=== PATIENT | female | born 1950 | race Caucasian/White ===

== ENCOUNTER 2020-04-06 07:25 | Outpatient (CLI) | payer MEDICARE, SELFPAY ==
[2020-04-06 07:42] LABS: Basophils Absolute Auto 0.07 K/mm3 (0.00-0.10); Basophils Percent Auto 1.3 % (0.0-1.0); Eosinophils Absolute Auto 0.26 K/mm3 (0.02-0.50); Eosinophils Percent Auto 4.9 % (1.0-6.0); Hematocrit 39.4 % (35.0-42.0); Immature Granulocyte Absolute 0.04 K/mm3 (0.00-0.00); Immature Granulocyte Percent A 0.8 % (0.0-0.0); Lymphocytes Absolute Auto 1.37 K/mm3 (1.10-4.50); Lymphocytes Percent Auto 25.8 % (18.0-42.0); Mean Corpuscular Volume 90.8 fL (78.0-102.0); Mean Platelet Volume 8.8 fl (9.2-11.8); Monocytes Absolute Auto 0.45 K/mm3 (0.10-0.90); Monocytes Percent Auto 8.5 % (2.0-11.0); Neutrophils Absolute Auto 3.1 K/mm3 (1.7-7.2); Neutrophils Percent Auto 58.7 % (50.0-70.0); Platelet Count Result 195 K/mm3 (150-420); Red Blood Count 4.34 M/mm3 (4.20-5.40); Red Cell Distribution Width 13.4 % (11.6-14.4); White Blood Count 5.3 K/mm3 (4.8-10.8)
[2020-04-06 07:43] LABS: Add Urine Microscopic? YES; Appearance Urine Clear (Clear); Bilirubin Urine Negative (Negative); Blood Urine Negative (Negative); Color Urine Yellow (Yellow); Glucose Urine UA Negative (Negative); Ketones Urine Negative (Negative); Leukocyte Esterase Ur 1+ LEU/UL (Negative); Nitrate Urine Negative (Negative); Protein Urine Negative (Negative); Urobilinogen Urine 0.2 mg/dL (0.2-1.0); pH Urine 5.5 (5.0-8.0)
[2020-04-06 07:51] LABS: Bacteria Urine Trace /hpf; RBC Urine 0-2 /hpf (0-2); Squamous Epithelial Cell Urine Few /hpf (Few)
[2020-04-06 08:19] LABS: Alanine Aminotransferase 31 U/L (14-59); Alkaline Phosphatase 68 U/L (46-116); Anion Gap 11.4 mmol/L (7-16); Aspartate Amino Transferase 24 U/L (15-37); Bilirubin,Total 0.3 mg/dL (0.00-1.00); Blood Urea Nitrogen 21 mg/dL (7-18); Calcium 9.4 mg/dL (8.5-10.1); Carbon Dioxide 30 mmol/L (21-32); Chloride 106 mmol/L (98-108); Cholesterol 245 mg/dL (0-200); Estimated Glomerular Filt Rate 57; Glucose 103 mg/dL (70-99); HDL Direct 63 mg/dL (40-60); LDL Cholesterol Calculated 117 mg/dL (<130); Osmolality Calculated 299 mOsm/kg (285-295); Potassium 4.4 mmol/L (3.5-5.1); Sodium 143 mmol/L (136-145); Thyroid Stimulating Hormone 4.29 uIU/mL (0.36-3.74); Triglycerides 323 mg/dL (0-150)
== END 2020-04-06 07:26 | disposition home or self-care (01) ==
PROVIDERS: PCP Internal Medicine; Visit Provider Internal Medicine
DX: E78.5 Hyperlipidemia, unspecified (principal); M54.5 Low back pain; K52.9 Noninfective gastroenteritis and colitis, unspecified; R82.90 Unspecified abnormal findings in urine
CPT/HCPCS: 36415; 80053; 80061; 81001; 84443; 85025; 87086; 87088

== ENCOUNTER 2020-08-11 08:46 | Outpatient (CLI) | payer MEDICARE, SELFPAY ==
--- NOTE | ~2020-08-11 | MM_ITS ---
EXAMINATION: MM screening lilia BI w tom HISTORY: Screening TECHNIQUE: Craniocaudal and mediolateral oblique 3-D tomosynthesis images were obtained and synthetic 2-D images were generated. CAD analysis was submitted and interpreted. COMPARISON: Comparison to multiple prior studies sequentially, with oldest reviewed study dated 06/06. BREAST PARENCHYMAL COMPOSITION: There are scattered areas of fibroglandular density. FINDINGS: There is no evidence of suspicious mass, calcification, or architectural distortion to sugg est malignancy in either breast. There has been no suspicious interval change. IMPRESSION: 1. No mammographic evidence of malignancy. 2. Recommend routine screening mammography in one year. BI-RADS Category 1: Negative Reviewed, dictated and finalized at location A.
--- NOTE | ~2020-08-11 | DEXA_ITS ---
Bone Density Report Name: Whitley Ramos Age: 69 Sex: Female Ethnicity: White Date of : 1950 Indication: osteopenia; inflammatory bowel disease; hysterectomy; Referring Provider: AJIT MCKEON Study: Bone densitometry was performed. Exam Date: August 11, 2020 Accession number: [id number] Bone Density: Region BMD T-score Z-score Classification AP Spine (L1, L2, L3) 1.108 0.8 2.7 Normal Femoral Neck (Left) 0.620 -2.1 -0.4 Osteopenia Total Hip (Left) 0.789 -1.3 0.1 Osteopenia Total Hip Bilateral Avg 0.837 -0.9 0.5 Normal Femoral Neck (Right) 0.672 -1.6 0.1 Osteopenia Total Hip (Right) 0.885 -0.5 0.9 Normal World Health Organization criteria for BMD impression classify patients as: Normal (T-score at or above -1.0), Osteopenia (T-score between -1.0 and -2.5), or Osteoporosis (T-score at or below -2.5). 10-year Fracture Risk(1): Major Osteoporotic Fracture 11% Hip Fracture 1.8% Reported Risk Factors: [place] (), Neck BMD=0.620, BMI=31.2 (1) FRAX(R) Version 3.08. Fracture probability calculated for an untreated patient. Fracture probability may be lower if the patient has received treatment. Previous Exams: Region Exam Age BMD T-score BMD Change BMD Change Date g/cm2 vs Baseline vs Previous AP Spine(L1, L2, L3) 08/11/2020 69 1.108 0.8 0.048(4.5%)# 0.048(4.5%)# 04/04/2009 58 1.060 0.4 Total Hip(Left) 08/11/2020 69 0.789 -1.3 0.021(2.8%)# 0.039(5.2%)* 07/02/2018 67 0.750 -1.6 -0.018(-2.4%)# -0.018(-2.4%)# 04/04/2009 58 0.768 -1.4 Total Hip(Right) 08/11/2020 69 0.885 -0.5 0.017(2.0%)# 0.062(7.5%)* 07/02/2018 67 0.823 -1.0 -0.045(-5.1%)# -0.045(-5.1%)# 04/04/2009 58 0.868 -0.6 *Denotes significance at 95% confidence level, LSC for AP Spine = 0.022 g/cm2, LSC for Total Hip = 0.027 g/cm2 Clinical Information Provided by Patient: Has the following medical conditions: Inflammatory bowel diseases, Hysterectomy Patient maximum height was 66 Menopause Age: 42 Drinks caffeinated beverages Onset of menses at age 15 Number of children 1 Impression: The patient has low bone mass, based on the Left Femoral Neck T-score. The patient has an estimated ten-year risk of hip fracture of 1.8% and an estimated ten-year risk of major fracture of 11%, based on the WHO FRAX algorithm. No significant bone loss was observed. Discussion: BONE DENSITY IS LOW AT ONE OR MORE SKELETAL SITES.
== END 2020-08-11 08:47 | disposition home or self-care (01) ==
LOC: ANHIMG 08:49
PROVIDERS: PCP Internal Medicine; Visit Provider Internal Medicine
DX: Z12.31 Encounter for screening mammogram for malignant neoplasm of breast (principal); Z78.0 Asymptomatic menopausal state; M85.852 Other specified disorders of bone density and structure, left thigh; M85.851 Other specified disorders of bone density and structure, right thigh
CPT/HCPCS: 77063; 77067; 77080

== ENCOUNTER 2020-12-09 08:11 | Outpatient (CLI) | payer MEDICARE, SELFPAY ==
[2020-12-09 08:36] LABS: Hemoglobin A1C 5.5 % (<5.7)
[2020-12-09 09:27] LABS: Alanine Aminotransferase 23 U/L (14-59); Albumin Level 4.2 g/dL (3.4-5.0); Alkaline Phosphatase 75 U/L (46-116); Anion Gap 10 mmol/L (8-16); Aspartate Amino Transferase 14 U/L (15-37); Bilirubin,Total 0.4 mg/dL (0.00-1.00); Blood Urea Nitrogen 15 mg/dL (7-18); Calcium 9.1 mg/dL (8.5-10.1); Carbon Dioxide 27 mmol/L (21-32); Chloride 106 mmol/L (98-108); Cholesterol 215 mg/dL (0-200); Estimated Glomerular Filt Rate > 60; Free T3 2.05 pg/mL (2.18-3.98); Free T4 Free Thyroxine 0.77 ng/dL (0.76-1.46); Glucose 96 mg/dL (70-99); HDL Direct 63 mg/dL (40-60); LDL Cholesterol Calculated 111 mg/dL (<130); Osmolality Calculated 296 mOsm/kg (285-295); Potassium 4.3 mmol/L (3.5-5.1); Sodium 143 mmol/L (136-145); Thyroid Stimulating Hormone 1.68 uIU/mL (0.36-3.74); Total Protein 7.8 g/dL (6.4-8.2); Triglycerides 207 mg/dL (0-150)
[2020-12-13 05:11] LABS: Thyroglobulin 9.2 ng/mL (2.8-40.9); Thyroglobulin Antibodies <1 IU/mL (<=1)
== END 2020-12-09 08:12 | disposition home or self-care (01) ==
LOC: CHSLAB 08:14
PROVIDERS: PCP Internal Medicine; Visit Provider Internal Medicine
DX: E78.5 Hyperlipidemia, unspecified (principal); R73.01 Impaired fasting glucose; E03.9 Hypothyroidism, unspecified
CPT/HCPCS: 36415; 80053; 80061; 83036; 84432; 84439; 84443; 84481; 86800

== ENCOUNTER 2021-08-10 08:10 | Outpatient (CLI) | payer MEDICARE, SELFPAY ==
[2021-08-10 08:30] LABS: Add Urine Microscopic? NO; Appearance Urine Clear (Clear); Basophils Absolute Auto 0.06 K/mm3 (0.00-0.10); Basophils Percent Auto 1.2 % (0.0-1.0); Bilirubin Urine Negative (Negative); Blood Urine Negative (Negative); Color Urine Light Yellow (Yellow); Eosinophils Percent Auto 4.1 % (1.0-6.0); Glucose Urine UA Negative (Negative); Hematocrit 41.6 % (35.0-42.0); Hemoglobin 13.7 g/dL (11.7-13.8); Immature Granulocyte Absolute 0.02 K/mm3 (0.00-0.00); Immature Granulocyte Percent A 0.4 % (0.0-0.0); Ketones Urine Negative (Negative); Leukocyte Esterase Ur Negative (Negative); Lymphocytes Absolute Auto 1.17 K/mm3 (1.10-4.50); Lymphocytes Percent Auto 24.1 % (18.0-42.0); Mean Corpuscular HGB Conc 32.9 g/dL (32.0-36.0); Mean Corpuscular Hemoglobin 29.1 pg (27.0-31.0); Mean Corpuscular Volume 88.3 fL (78.0-102.0); Mean Platelet Volume 9.2 fl (9.2-11.8); Monocytes Absolute Auto 0.41 K/mm3 (0.10-0.90); Monocytes Percent Auto 8.4 % (2.0-11.0); Neutrophils Percent Auto 61.8 % (50.0-70.0); Nitrate Urine Negative (Negative); Platelet Count Result 232 K/mm3 (150-420); Protein Urine Negative (Negative); Red Blood Count 4.71 M/mm3 (4.20-5.40); Specific Grav Ur 1.025 (1.010-1.020); Urobilinogen Urine 0.2 mg/dL (0.2-1.0); White Blood Count 4.9 K/mm3 (4.8-10.8); pH Urine 5.5 (5.0-8.0)
[2021-08-10 09:07] LABS: Alanine Aminotransferase 36 U/L (14-59); Albumin Level 4.2 g/dL (3.4-5.0); Alkaline Phosphatase 74 U/L (46-116); Anion Gap 10 mmol/L (8-16); Aspartate Amino Transferase 24 U/L (15-37); Bilirubin,Total 0.4 mg/dL (0.00-1.00); Blood Urea Nitrogen 16 mg/dL (7-18); Calcium 9.5 mg/dL (8.5-10.1); Carbon Dioxide 27 mmol/L (21-32); Chloride 105 mmol/L (98-108); Cholesterol 225 mg/dL (0-200); Estimated Glomerular Filt Rate > 60; Glucose 103 mg/dL (70-99); HDL Direct 59 mg/dL (40-60); LDL Cholesterol Calculated 111 mg/dL (<130); Osmolality Calculated 295 mOsm/kg (285-295); Potassium 4.3 mmol/L (3.5-5.1); Sodium 142 mmol/L (136-145); Total Protein 7.1 g/dL (6.4-8.2); Triglycerides 277 mg/dL (0-150)
== END 2021-08-10 08:11 | disposition home or self-care (01) ==
PROVIDERS: PCP Internal Medicine; Visit Provider Internal Medicine
DX: E78.5 Hyperlipidemia, unspecified (principal); Z00.00 Encounter for general adult medical examination without abnormal findings
CPT/HCPCS: 36415; 80053; 80061; 81003; 85025

== ENCOUNTER 2021-09-03 08:08 | Outpatient (CLI) | payer MEDICARE, SELFPAY ==
--- NOTE | ~2021-09-03 | MM_ITS ---
EXAMINATION: MM screening lilia BI w tom HISTORY: Screening mammogram TECHNIQUE: Craniocaudal and mediolateral oblique 3-D tomosynthesis images were obtained and synthetic 2-D images were generated. CAD analysis was submitted and interpreted. COMPARISON: 08/11/2020, 07/15/2019, 07/02/2018 bilateral screening mammogram examinations BREAST PARENCHYMAL COMPOSITION: There are scattered areas of fibroglandular density. FINDINGS: There is no evidence of suspicious mass, calcification, or architectural distortion to sugg est malignancy in either breast. There has been no suspicious interval change. IMPRESSION: 1. No mammographic evidence of malignancy. 2. Recommend routine screening mammography in one year. BI-RADS Category 1: Negative Reviewed, dictated and finalized at location A. 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
== END 2021-09-03 08:09 | disposition home or self-care (01) ==
LOC: ANHIMG 08:10
PROVIDERS: PCP Internal Medicine; Visit Provider Internal Medicine
DX: Z12.31 Encounter for screening mammogram for malignant neoplasm of breast (principal)
CPT/HCPCS: 77063; 77067

== ENCOUNTER 2021-10-26 07:14 | Outpatient (CLI) | payer MEDICARE, SELFPAY ==
[2021-10-26 09:36] LABS: SARS-CoV-2 RNA PCR Negative (Negative)
== END 2021-10-26 07:15 | disposition home or self-care (01) ==
LOC: CHSLAB 07:16
PROVIDERS: PCP Internal Medicine; Visit Provider Internal Medicine
DX: Z20.822 Contact with and (suspected) exposure to COVID-19 (principal)
CPT/HCPCS: C9803; U0003; U0005

== ENCOUNTER 2022-01-17 01:18 | Day surgery (SDC) | payer MEDICARE, SELFPAY ==
[2022-01-09 09:18] VITALS: BMI 29.9
--- NOTE | 2022-01-17 06:30 | WPDANESEPPF ---
Anes - Initial Pre Proc Eval Procedure: Operation Date: 01/17/22 10:00 Proposed Procedures p Colonoscopy - Popeye Evans MD Date/Time: 01/17/22 06:30 Surgeon: Popeye Evans MD Pre Op Diagnosis: ulcerative colitis Patient Data Age: 71 Gender: F Height: 1.68 m Weight: 84 kg Allergies Allergy/AdvReac Type Severity Reaction Status Date / Time SPEARMINT OIL Allergy Severe THROAT Uncoded 01/17/22 08:45 CLOSES Home Medications Medication Instructions Recorded Confirmed Type balsalazide 750 mg capsule 2,250 mg PO BID #540 cap 12/18/21 01/17/22 Rx biotin 10,000 mcg capsule 10,000 mcg PO DAILY 12/18/21 01/17/22 History cholecalciferol (vitamin D3) 25 25 mcg PO DAILY 12/18/21 01/17/22 History mcg (1,000 unit) capsule diclofenac sodium 75 mg 75 mg PO BID tablet 12/18/21 01/17/22 History tablet,delayed release loratadine 10 mg chewable tablet 10 mg PO DAILY 12/18/21 01/17/22 History rosuvastatin 20 mg tablet 20 mg PO DAILY 12/18/21 01/17/22 History sertraline 100 mg tablet 100 mg PO DAILY 12/18/21 01/17/22 History Patient hx anesthesia problems: none Family hx anesthesia problems: none Results Review: All pre-operative results and documents have been reviewed as part of the pre-operative evaluation. [facility] Past Medical History Medical History Hyperlipidemia Ulcerative colitis Surgical History Surgical History History of hysterectomy Family History Family History Mother Family history of cardiovascular disease Social History Social History Smoking status: Former smoker Tobacco type: cigarettes Alcohol intake: current Drinks per week: 4 Substance use: current Substance use type: marijuana Other substance usage details: 2X weekly for OA Living arrangements: with family Spiritual care concerns: No Anes - Eval Final PreProcedure Day of Procedure 01/17/22 06:30 Patient weight: overweight Heart: regular rate and rhythm Lungs: clear to auscultation and normal air movement Airway: Mallampati scale class II Neurological: alert and oriented Last oral intake: >/= 8 hours ASA classification: III Emergent: no Anesthetic plan: proceed Anesthesia type and monitoring: general GIVS and standard monitoring Results Review: All pre-operative results and documents have been reviewed as part of the pre-operative evaluation. Informed Consent: The patient's anesthetic plan and its attendant risks and benefits were discussed with the patient/family/POA. Questions were solicited and answers provided to the satisfaction of the patient/family/POA.
[2022-01-17 08:46] VITALS: BP 135/88; PULSE 81; RESP 16; TEMP 36.3; O2SAT 99
[2022-01-17] MEDS: LACTATED RINGERS 1,000 ML 150 ML IV CONT (08:50)
--- NOTE | 2022-01-17 09:10 | PM.HPGS ---
History of Present Illness History of Present Illness Consent: Risks, benefits, and alternatives have been discussed and questions answered. Patient agrees to proceed with procedure. Chief complaint: ulcerative colitis Narrative: Whitley Ramos is a 71 year old female Who was found have ulcerative colitis of the distal colon few years ago. She has been taking balsalazide doing well with that. She has had no blood her stools. Her stools tend to be soft most the time. Review of Systems Review of Systems: All systems reviewed & are unremarkable except as noted in HPI and below PMFSH Past Medical History Medical History Hyperlipidemia Ulcerative colitis Surgical History Surgical History History of hysterectomy Family History Family History Mother Family history of cardiovascular disease Social History Social History Smoking status: Former smoker Tobacco type: cigarettes Alcohol intake: current Drinks per week: 4 Substance use: current Substance use type: marijuana Other substance usage details: 2X weekly for OA Living arrangements: with family Spiritual care concerns: No Meds Home Medications and Allergies Home Medications Medication Instructions Recorded Confirmed Type balsalazide 750 mg capsule 2,250 mg PO BID #540 cap 12/18/21 01/17/22 Rx biotin 10,000 mcg capsule 10,000 mcg PO DAILY 12/18/21 01/17/22 History cholecalciferol (vitamin D3) 25 25 mcg PO DAILY 12/18/21 01/17/22 History mcg (1,000 unit) capsule diclofenac sodium 75 mg 75 mg PO BID tablet 12/18/21 01/17/22 History tablet,delayed release loratadine 10 mg chewable tablet 10 mg PO DAILY 12/18/21 01/17/22 History rosuvastatin 20 mg tablet 20 mg PO DAILY 12/18/21 01/17/22 History sertraline 100 mg tablet 100 mg PO DAILY 12/18/21 01/17/22 History Allergies Allergy/AdvReac Type Severity Reaction Status Date / Time SPEARMINT OIL Allergy Severe THROAT Uncoded 01/17/22 08:45 CLOSES Vital Signs Vital Signs - 24 hr 01/17/22 08:46 Temperature 36.3 C L Pulse Rate 81 Respiratory Rate 16 Blood Pressure 135/88 Pulse Oximetry 99 Exam Const: General: alert Orientation/consciousness: patient oriented x3 Resp: Auscultation: clear to auscultation bilaterally Cardio: Rhythm: regular rhythm GI: GI Palp: Yes Soft to palpation and No Tenderness to palpation present (GI) Neuro: General: patient oriented x3 Assessment and Plan Assessment and plan (1) Ulcerative colitis: Code(s): K51.90 - Ulcerative colitis, unspecified, without complications Status: Acute Assessment and Plan: Colonoscopy with possible biopsy or polypectomy or cautery or injection of substances.
[2022-01-17 10:05] VITALS: BP 109/46; PULSE 74; RESP 23; O2SAT 96
[2022-01-17 10:15] VITALS: BP 134/83; PULSE 68; RESP 20; O2SAT 96
[2022-01-17 10:25] VITALS: BP 145/80; PULSE 72; RESP 20; O2SAT 98
== END 2022-01-17 10:30 | disposition home or self-care (01) ==
PROVIDERS: PCP Internal Medicine; Visit Provider Internal Medicine Gastroenterology
PROC: 0DJD8ZZ Inspection of Lower Intestinal Tract, Via Natural or Artificial Opening Endoscopic (ICD-10-PCS; CPT 45378; principal; 2022-01-17 10:00)
DX: K51.90 Ulcerative colitis, unspecified, without complications (principal); E78.5 Hyperlipidemia, unspecified; M19.90 Unspecified osteoarthritis, unspecified site; F12.90 Cannabis use, unspecified, uncomplicated; Z87.891 Personal history of nicotine dependence
CPT/HCPCS: 45380; 88305; J2704; J7120

== ENCOUNTER 2022-02-08 08:43 | Outpatient (CLI) | payer MEDICARE, SELFPAY ==
[2022-02-08 09:41] LABS: Alanine Aminotransferase 26 U/L (14-59); Albumin Level 4.1 g/dL (3.4-5.0); Alkaline Phosphatase 70 U/L (46-116); Anion Gap 8 mmol/L (8-16); Aspartate Amino Transferase 18 U/L (15-37); Bilirubin,Total 0.4 mg/dL (0.00-1.00); Blood Urea Nitrogen 20 mg/dL (7-18); Calcium 9.2 mg/dL (8.5-10.1); Carbon Dioxide 28 mmol/L (21-32); Chloride 106 mmol/L (98-108); Cholesterol 222 mg/dL (0-200); Estimated Glomerular Filt Rate > 60; Glucose 103 mg/dL (70-99); HDL Direct 59 mg/dL (40-60); LDL Cholesterol Calculated 109 mg/dL (<130); Osmolality Calculated 296 mOsm/kg (285-295); Potassium 4.6 mmol/L (3.5-5.1); Sodium 142 mmol/L (136-145); Total Protein 6.8 g/dL (6.4-8.2); Triglycerides 268 mg/dL (0-150)
== END 2022-02-08 08:44 | disposition home or self-care (01) ==
LOC: CHSLAB 08:45
PROVIDERS: PCP Internal Medicine; Visit Provider Internal Medicine
DX: E78.2 Mixed hyperlipidemia (principal)
CPT/HCPCS: 36415; 80053; 80061

== ENCOUNTER 2022-02-27 08:56 | Outpatient (CLI) | payer MEDICARE, SELFPAY ==
--- NOTE | ~2022-02-27 | XR_ITS ---
EXAMINATION: XR chest 2V DATE: 02/27/2022 09:48 INDICATION: Shortness of breath TECHNIQUE: PA and lateral views of the chest are obtained. COMPARISON: None available FINDINGS: There is mild atelectasis of the left lung base There is no pleural effusion or pneumothora x. The cardiomediastinal silhouette is normal. There is moderate thoracic spondylosis. IMPRESSION: 1. Mild left basilar atelectasis. Reviewed, dictated and finalized at location A.
--- NOTE | 2022-02-27 12:34 | WPDPFTINT ---
PFT Procedure Performed PFT Procedure Performed Plethysmography (Lung Vol) Diffusing Cap (DLCO) Flow Vol Loop Spirometry w/o Bronchodil PFT Interpretation This is a pulmonary function test with spirometry, plethysmography and diffusing capacity. The test was performed and results interpreted in accordance with the 2019 and 2005 ATS/ERS Task Force guidelines respectively using the Global Lung Function Initiative-2012 reference equations. Patient demonstrated good effort and cooperation. Reproducibility criteria were met. The quality of the spirometry maneuver was Grade A. Findings: Spirometry: The contour the inspiratory and expiratory flow tracing are normal. The FVC is 3.10 L, 100% predicted. The FEV1 is 2.30 L, 96% predicted. The FEV1: FVC ratio 74%. Plethysmography: The total lung capacity is 5.24 L, 97% predicted. The functional residual capacity is 2.61 L, 85% predicted. The residual volume is 2.14 L, 94% predicted. Diffusion capacity: The diffusion capacity unadjusted for hemoglobin and carboxyhemoglobin is 15.7, 73% predicted. The diffusion capacity adjusted for alveolar volume is 3.96, 94% predicted. Impression: The spirometry is normal without evidence of an obstructive abnormality. The lung volumes are normal. The diffusing capacity is normal. There are no prior studies for comparison
== END 2022-02-27 08:57 | disposition home or self-care (01) ==
LOC: ANHPFT 08:59
PROVIDERS: PCP Internal Medicine; Visit Provider Internal Medicine Cardiovascular Disease
DX: R06.00 Dyspnea, unspecified (principal); J98.11 Atelectasis
CPT/HCPCS: 71046; 94375; 94726; 94729

== ENCOUNTER 2022-06-27 08:41 | Outpatient (CLI) | payer MEDICARE, SELFPAY ==
[2022-06-27 09:31] LABS: SARS-CoV-2 RNA PCR Positive (Negative)
== END 2022-06-27 08:42 | disposition home or self-care (01) ==
LOC: CHSLAB 08:44
PROVIDERS: PCP Internal Medicine; Visit Provider Internal Medicine
DX: U07.1 COVID-19 (principal)
CPT/HCPCS: C9803; U0003; U0005

== ENCOUNTER 2022-09-11 14:43 | Outpatient (CLI) | payer MEDICARE, SELFPAY ==
--- NOTE | ~2022-09-11 | MM_ITS ---
EXAMINATION: MM screening lilia BI w tom HISTORY: Screening TECHNIQUE: Craniocaudal and mediolateral oblique 3-D tomosynthesis images were obtained and synthetic 2-D images were generated. CAD analysis was submitted and interpreted. COMPARISON: Comparison to multiple prior studies sequentially, with oldest reviewed study dated 06/24. BREAST PARENCHYMAL COMPOSITION: The breasts are almost entirely fatty. FINDINGS: There is no evidence of suspicious mass, calcification, or architectural distortion to sugg est malignancy in either breast. There has been no suspicious interval change. IMPRESSION: 1. No mammographic evidence of malignancy. 2. Recommend routine screening mammography in one year. BI-RADS Category 1: Negative Reviewed, dictated and finalized at location A. 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
== END 2022-09-11 14:44 | disposition home or self-care (01) ==
PROVIDERS: PCP Internal Medicine; Visit Provider Internal Medicine
DX: Z12.31 Encounter for screening mammogram for malignant neoplasm of breast (principal)
CPT/HCPCS: 77063; 77067

== ENCOUNTER 2022-10-04 08:40 | Outpatient (CLI) | payer MEDICARE, SELFPAY ==
[2022-10-04 08:55] LABS: Basophils Absolute Auto 0.06 K/mm3 (0.00-0.10); Basophils Percent Auto 1.2 % (0.0-1.0); Eosinophils Absolute Auto 0.21 K/mm3 (0.02-0.50); Eosinophils Percent Auto 4.2 % (1.0-6.0); Hematocrit 39.4 % (35.0-42.0); Immature Granulocyte Absolute 0.01 K/mm3 (0.00-0.00); Immature Granulocyte Percent A 0.2 % (0.0-0.0); Lymphocytes Absolute Auto 1.35 K/mm3 (1.10-4.50); Lymphocytes Percent Auto 27.3 % (18.0-42.0); Mean Corpuscular Hemoglobin 29.6 pg (27.0-31.0); Mean Corpuscular Volume 89.7 fL (78.0-102.0); Monocytes Absolute Auto 0.49 K/mm3 (0.10-0.90); Monocytes Percent Auto 9.9 % (2.0-11.0); Neutrophils Absolute Auto 2.8 K/mm3 (1.7-7.2); Neutrophils Percent Auto 57.2 % (50.0-70.0); Platelet Count Result 226 K/mm3 (150-420); Red Blood Count 4.39 M/mm3 (4.20-5.40); Red Cell Distribution Width 12.9 % (11.6-14.4)
[2022-10-04 09:00] LABS: Appearance Urine Clear (Clear); Bilirubin Urine Negative (Negative); Blood Urine Negative (Negative); Glucose Urine UA Negative (Negative); Ketones Urine Negative (Negative); Leukocyte Esterase Ur 2+ (Negative); Nitrate Urine Negative (Negative); Protein Urine Negative (Negative); Specific Grav Ur 1.015 (1.010-1.020); Urobilinogen Urine 0.2 mg/dL (0.2-1.0)
[2022-10-04 09:05] LABS: Add Urine Microscopic? YES; Bacteria Urine Trace /hpf; Color Urine Light Yellow (Yellow); RBC Urine None seen /hpf (0-2); Renal Epithelial Cells Urine Few /hpf; Squamous Epithelial Cell Urine Few /hpf (Few)
[2022-10-04 09:45] LABS: Alanine Aminotransferase 23 U/L (14-59); Albumin Level 4.1 g/dL (3.4-5.0); Alkaline Phosphatase 78 U/L (46-116); Anion Gap 8 mmol/L (8-16); Aspartate Amino Transferase 15 U/L (15-37); Bilirubin,Total 0.4 mg/dL (0.00-1.00); Blood Urea Nitrogen 16 mg/dL (7-18); Calcium 9.3 mg/dL (8.5-10.1); Carbon Dioxide 29 mmol/L (21-32); Chloride 108 mmol/L (98-108); Cholesterol 205 mg/dL (0-200); Estimated Glomerular Filt Rate 58; Glucose 100 mg/dL (70-99); HDL Direct 65 mg/dL (40-60); LDL Cholesterol Calculated 108 mg/dL (<130); Osmolality Calculated 301 mOsm/kg (285-295); Potassium 4.3 mmol/L (3.5-5.1); Sodium 145 mmol/L (136-145); Thyroid Stimulating Hormone 2.53 uIU/mL (0.36-3.74); Total Protein 7.1 g/dL (6.4-8.2); Triglycerides 158 mg/dL (0-150)
[2022-10-04 10:07] LABS: CRP < 0.5 mg/dL (0.0-0.9)
== END 2022-10-04 08:41 | disposition home or self-care (01) ==
LOC: CHSLAB 08:42
PROVIDERS: PCP Internal Medicine; Visit Provider Internal Medicine
DX: E78.5 Hyperlipidemia, unspecified (principal); M13.0 Polyarthritis, unspecified; Z00.00 Encounter for general adult medical examination without abnormal findings
CPT/HCPCS: 36415; 80053; 80061; 81001; 84443; 85025; 86140

== ENCOUNTER 2023-04-18 08:29 | Outpatient (CLI) | payer MEDICARE, SELFPAY ==
[2023-04-18 09:01] LABS: Hemoglobin A1C 5.5 % (<5.7)
[2023-04-18 09:23] LABS: Alanine Aminotransferase 28 U/L (14-59); Albumin Level 3.8 g/dL (3.4-5.0); Alkaline Phosphatase 84 U/L (46-116); Anion Gap 7 mmol/L (8-16); Aspartate Amino Transferase 17 U/L (15-37); Bilirubin,Total 0.3 mg/dL (0.00-1.00); Blood Urea Nitrogen 20 mg/dL (7-18); Calcium 9.2 mg/dL (8.5-10.1); Carbon Dioxide 27 mmol/L (21-32); Chloride 106 mmol/L (98-108); Cholesterol 214 mg/dL (0-200); Estimated Glomerular Filt Rate > 60; Glucose 101 mg/dL (70-99); HDL Direct 58 mg/dL (40-60); LDL Cholesterol Calculated 99 mg/dL (<130); Osmolality Calculated 292 mOsm/kg (285-295); Potassium 4.4 mmol/L (3.5-5.1); Sodium 140 mmol/L (136-145); Total Protein 6.7 g/dL (6.4-8.2); Triglycerides 283 mg/dL (0-150)
== END 2023-04-18 08:30 | disposition home or self-care (01) ==
LOC: CHSLAB 08:32
PROVIDERS: PCP Internal Medicine; Visit Provider Internal Medicine
DX: E78.00 Pure hypercholesterolemia, unspecified (principal); R73.01 Impaired fasting glucose
CPT/HCPCS: 36415; 80053; 80061; 83036

== ENCOUNTER 2023-11-14 08:37 | Outpatient (CLI) | payer MEDICARE, SELFPAY ==
[2023-11-14 08:50] LABS: Basophils Absolute Auto 0.06 K/mm3 (0.00-0.10); Eosinophils Absolute Auto 0.24 K/mm3 (0.02-0.50); Eosinophils Percent Auto 4.1 % (1.0-6.0); Hematocrit 40.2 % (35.0-42.0); Hemoglobin 13.2 g/dL (11.7-13.8); Immature Granulocyte Absolute 0.02 K/mm3 (0.00-0.00); Immature Granulocyte Percent A 0.3 % (0.0-0.0); Lymphocytes Absolute Auto 1.28 K/mm3 (1.10-4.50); Lymphocytes Percent Auto 21.8 % (18.0-42.0); Mean Corpuscular HGB Conc 32.8 g/dL (32.0-36.0); Mean Corpuscular Hemoglobin 29.1 pg (27.0-31.0); Mean Corpuscular Volume 88.5 fL (78.0-102.0); Mean Platelet Volume 8.7 fl (9.2-11.8); Monocytes Absolute Auto 0.46 K/mm3 (0.10-0.90); Monocytes Percent Auto 7.8 % (2.0-11.0); Neutrophils Absolute Auto 3.8 K/mm3 (1.7-7.2); Platelet Count Result 190 K/mm3 (150-420); Red Blood Count 4.54 M/mm3 (4.20-5.40); Red Cell Distribution Width 12.9 % (11.6-14.4); White Blood Count 5.9 K/mm3 (4.8-10.8)
[2023-11-14 09:07] LABS: Hemoglobin A1C 5.9 % (<5.7)
[2023-11-14 09:31] LABS: Alanine Aminotransferase 33 U/L (14-59); Albumin Level 3.8 g/dL (3.4-5.0); Alkaline Phosphatase 69 U/L (46-116); Anion Gap 12 mmol/L (8-16); Aspartate Amino Transferase 20 U/L (15-37); Bilirubin,Total 0.4 mg/dL (0.00-1.00); Blood Urea Nitrogen 22 mg/dL (7-18); Carbon Dioxide 26 mmol/L (21-32); Chloride 103 mmol/L (98-108); Cholesterol 203 mg/dL (0-200); Estimated Glomerular Filt Rate > 60; Glucose 102 mg/dL (70-99); HDL Direct 59 mg/dL (40-60); LDL Cholesterol Calculated 106 mg/dL (<130); Osmolality Calculated 295 mOsm/kg (285-295); Potassium 4.3 mmol/L (3.5-5.1); Sodium 141 mmol/L (136-145); Thyroid Stimulating Hormone 3.73 uIU/mL (0.36-3.74); Total Protein 6.9 g/dL (6.4-8.2); Triglycerides 192 mg/dL (0-150)
== END 2023-11-14 08:38 | disposition home or self-care (01) ==
PROVIDERS: PCP Internal Medicine; Visit Provider Internal Medicine
DX: E78.5 Hyperlipidemia, unspecified (principal); R73.01 Impaired fasting glucose
CPT/HCPCS: 36415; 80053; 80061; 83036; 84443; 85025

== ENCOUNTER 2023-12-19 06:00 | Day surgery (SDC) | payer MEDICARE, SELFPAY ==
[2023-11-05 08:16] VITALS: BMI 29.9
[2023-12-04 12:40] VITALS: BMI 29.9
--- NOTE | 2023-12-17 09:06 | SUR.PREOP ---
Patient called regarding upcoming procedure. Reviewed preop instructions, appointment times, and procedure prep.
--- NOTE | 2023-12-18 18:06 | PM.HPGS ---
History of Present Illness History of Present Illness Consent: Risks, benefits, and alternatives have been discussed and questions answered. Patient agrees to proceed with procedure. Chief complaint: colitis Narrative: Whitley Ramos is a 73 year old female with chronic ulcerative colitis maintained on balsalazide. She is here for surveillance colonoscopy Review of Systems Review of Systems: All systems reviewed & are unremarkable except as noted in HPI and below PMFSH Past Medical History Medical History Hyperlipidemia Ulcerative colitis Surgical History Surgical History History of hysterectomy Family History Family History Mother Family history of cardiovascular disease Social History Social History Smoking status: Never smoker Tobacco type: cigarettes Alcohol intake: current Drinks per week: 4 Substance use: current Substance use type: marijuana Other substance usage details: Gummies at bedtime Living arrangements: with family Spiritual care concerns: No Meds Home Medications and Allergies Home Medications Medication Instructions Recorded Confirmed Type biotin 10,000 mcg capsule 10,000 mcg PO DAILY 12/18/21 12/10/23 History diclofenac sodium 75 mg 75 mg PO BID 12/18/21 12/10/23 History tablet,delayed release loratadine 10 mg chewable tablet 10 mg PO DAILY 12/18/21 12/10/23 History (Claritin) rosuvastatin 20 mg tablet 20 mg PO DAILY 12/18/21 12/10/23 History sertraline 100 mg tablet 100 mg PO DAILY 12/18/21 12/10/23 History balsalazide 750 mg capsule 2,250 mg PO BID #540 caps 04/21/23 12/10/23 Rx Allergies Allergy/AdvReac Type Severity Reaction Status Date / Time SPEARMINT OIL Allergy Severe THROAT Uncoded 12/19/23 06:10 CLOSES Exam Resp: Auscultation: clear to auscultation bilaterally Cardio: Rate: regular rate Rhythm: regular rhythm GI: GI Palp: Yes Soft to palpation and No Tenderness to palpation present (GI) Assessment and Plan Assessment and plan (1) Ulcerative colitis: Code(s): K51.90 - Ulcerative colitis, unspecified, without complications Status: Acute Assessment and Plan: Colonoscopy with possible biopsy or polypectomy or cautery or injection of substances.
[2023-12-19 06:10] VITALS: BP 170/88; PULSE 65; RESP 16; TEMP 36.6; O2SAT 97
[2023-12-19] MEDS: LACTATED RINGERS 1,000 ML 150 ML IV CONT (06:26)
--- NOTE | 2023-12-19 07:23 | P.PNAN_ITS ---
Anes - Initial Pre Proc Eval Procedure: Operation Date: 12/19/23 07:30 Proposed Procedures p Colonoscopy - Popeye Evans MD Date/Time: 12/19/23 07:23 Surgeon: Popeye Evans MD Pre Op Diagnosis: colitis Patient Data Age: 73 Gender: F Height: 1.68 m Weight: 89.1 kg Last Vital Signs Temp 97.9 F 12/19/23 06:10 Pulse 65 12/19/23 06:10 Resp 16 12/19/23 06:10 BP 170/88 H 12/19/23 06:10 Pulse Ox 97 12/19/23 06:10 O2 Del Method Room Air 12/19/23 06:10 Allergies Allergy/AdvReac Type Severity Reaction Status Date / Time SPEARMINT OIL Allergy Severe THROAT Uncoded 12/19/23 06:10 CLOSES Home Medications Medication Instructions Recorded Confirmed Type biotin 10,000 mcg capsule 10,000 mcg PO DAILY 12/18/21 12/10/23 History diclofenac sodium 75 mg 75 mg PO BID 12/18/21 12/10/23 History tablet,delayed release loratadine 10 mg chewable tablet 10 mg PO DAILY 12/18/21 12/10/23 History (Claritin) rosuvastatin 20 mg tablet 20 mg PO DAILY 12/18/21 12/10/23 History sertraline 100 mg tablet 100 mg PO DAILY 12/18/21 12/10/23 History balsalazide 750 mg capsule 2,250 mg PO BID #540 caps 04/21/23 12/10/23 Rx Patient hx anesthesia problems: none Family hx anesthesia problems: none Results Review: All pre-operative results and documents have been reviewed as part of the pre- operative evaluation. [facility] Past Medical History Medical History Hyperlipidemia Ulcerative colitis Surgical History Surgical History History of hysterectomy Family History Family History Mother Family history of cardiovascular disease Social History Social History Smoking status: Never smoker Tobacco type: cigarettes Alcohol intake: current Drinks per week: 4 Substance use: current Substance use type: marijuana Other substance usage details: Gummies at bedtime Living arrangements: with family Spiritual care concerns: No Anes - Eval Final PreProcedure Day of Procedure 12/19/23 07:23 Patient weight: obese Heart: regular rate and rhythm Lungs: clear to auscultation Airway: Mallampati scale class II Neurological: alert and oriented Last oral intake: >/= 8 hours ASA classification: III Emergent: no Anesthetic plan: proceed Anesthesia type and monitoring: general GIVS and standard monitoring Results Review: All pre-operative results and documents have been reviewed as part of the pre- operative evaluation. Informed Consent: The patient's anesthetic plan and its attendant risks and benefits were discussed with the patient/family/POA. Questions were solicited and answers provided to the satisfaction of the patient/family/POA.
[2023-12-19 07:48] VITALS: BP 98/40; PULSE 60; RESP 16; O2SAT 98
[2023-12-19 07:58] VITALS: BP 138/75; PULSE 60; RESP 18; O2SAT 99
[2023-12-19 08:08] VITALS: BP 150/94; PULSE 58; RESP 18; O2SAT 100
== END 2023-12-19 08:15 | disposition home or self-care (01) ==
LOC: ANHENDO 08:51
PROVIDERS: PCP Internal Medicine; Visit Provider Internal Medicine Gastroenterology
PROC: 0DJD8ZZ Inspection of Lower Intestinal Tract, Via Natural or Artificial Opening Endoscopic (ICD-10-PCS; CPT 45378; principal; 2023-12-19 07:30)
DX: Z09 Encounter for follow-up examination after completed treatment for conditions other than malignant neoplasm (principal); K57.30 Diverticulosis of large intestine without perforation or abscess without bleeding; K64.8 Other hemorrhoids; Z87.19 Personal history of other diseases of the digestive system; E78.5 Hyperlipidemia, unspecified; F12.90 Cannabis use, unspecified, uncomplicated; E66.9 Obesity, unspecified; Z68.31 Body mass index [BMI] 31.0-31.9, adult
CPT/HCPCS: 45380; 88305; J2001; J2704; J7120

== ENCOUNTER 2024-03-29 11:14 | Outpatient (CLI) | payer MEDICARE, SELFPAY ==
--- NOTE | ~2024-03-29 | XR_ITS ---
AP and lateral views of the right hip Clinical history: Pain Findings: No acute fracture or dislocation is seen. Osseous alignment is anatomic. Right hip joint is preserved. Soft tissues are unremarkable. Impression: No significant abnormality is seen. Reviewed, dictated and finalized at location M. Impression: No significant abnormality is seen.
--- NOTE | ~2024-03-29 | XR_ITS ---
Lumbosacral Spine: AP and lateral views Clinical History: Pain Findings: The normal lordotic curve is maintained. No fracture or subluxation seen. There is severe d egenerative disc narrowing at L4-L5. There is mild to moderate degenerative disc change in the remain yrn of the lumbar spine. There is severe facet arthropathy throughout the lumbar spine. The sacroilia c joints are normally outlined. Impression: Moderate to advanced degenerative spondylosis, as detailed above. Reviewed, dictated and finalized at location M. Impression: Moderate to advanced degenerative spondylosis, as detailed above.
== END 2024-03-29 11:15 | disposition home or self-care (01) ==
LOC: CHSIMG 11:16
PROVIDERS: PCP Internal Medicine; Visit Provider Internal Medicine
DX: M25.551 Pain in right hip (principal); M43.06 Spondylolysis, lumbar region
CPT/HCPCS: 72100; 73502

== ENCOUNTER 2024-04-13 10:44 | Outpatient (RCR) | payer MEDICARE, SELFPAY ==
--- NOTE | 2024-04-13 11:54 | OPREHPOC ---
Outpatient Therapy Plan of Care This is a Multidisciplinary Plan of Care that may contain components documented by all disciplines (PT, OT, and ST.) PT Problem 1 PT Problem #1 Knowledge Deficit PT Goal 1 Goal The patient will be independent in a home exercise program. Target Visit 4 PT Problem 2 PT Problem #2 Pain PT Goal 1 Goal The patient will report no greater than 3/10 low back pain with daily activities. Target Visit 8 PT Problem 3 PT Problem #3 Impaired Functional Mobil PT Goal 1 Goal 1. The patient will demonstrate 30% or less self perceived disability per the LEFS. 2. The patient will ambulate 1,200 feet during the 6 minute walk test with 2/10 or less low back and R LE pain to return to recreational walking. Target Visit 8 PT Problem 4 PT Problem #4 Impaired Strength PT Goal 1 Goal The patient will improve upper and lower abdominal as well as lumbar extension strength to 4-/5 or greater to increase support to the lumbar spine for recreational activities. Target Visit 8
--- NOTE | 2024-04-13 11:59 | PTOPEVAL1 ---
Assessment and note entered by Tg Burden, PT Evaluation Information Assessment Status Evaluation Diagnosis R hip pain, L3 radiculopathy Onset 04/06/24 Subjective Information Whitley Sheridan reports she started having right lower back pain at the end of February 2024. She was doing an exercise challenge in which she was walking 2 miles a day and riding a bike 30 miles a week plus playing golf 2-3 times a week. She thinks she overdid it with all the exercise. She notes pain starts in the R lower back to the groin and then to middle of the knee. She was on a muscle relaxer and steroids that has helped her symptoms improve. She was having difficulty sleeping, sitting, and standing. She now has dull low back pain that increases when she stands up from sitting. She notes a dull pain in the front of the thigh when she stands. She is able to sleep better now without medication except the diclofenac she has taken for several years. Reported Pain Level Pain Score 2: Self Report Assessment PT Clinical Summary Whitley Sheridan presents with low back pain with radiation to the right groin and anterior thigh. She has difficulty with standing after prolonged sitting as well as prolonged standing. She previously noted difficulty sleeping and being in one position for too long but she has had improvements after taking steroids and muscle relaxers. She objectively demonstrates decreased lumbar AROM, decreased core and hip strength, decreased hamstring flexibility, and positive special tests for lumbar nerve root irritation. She will benefit from skilled PT to address these limitations. Plan of Care Interventions Electrical Stimulation,Hot Pack/Cold Pack,Manual Therapy,Neuro Re-education,Patient/Caregiver Educati,Therapeutic Activities,Therapeutic Exercise PT Services Indicated Yes Treatment Frequency and 2 times a week for 8 visits Duration These treatments will address the objective and functional deficits as defined above. The patient will be advanced safely and appropriately in order for the patient to progress towards his/her prior level of function. Additional exercises will be introduced and as well as a comprehensive home exercise program upon discharge, if needed, ?to ensure carryover of functional gains achieved in the clinic. This treatment plan has been reviewed and agreement upon by the patient.
--- NOTE | 2024-05-06 12:14 | OPREHPOC ---
Outpatient Therapy Plan of Care This is a Multidisciplinary Plan of Care that may contain components documented by all disciplines (PT, OT, and ST.) PT Problem 1 PT Problem #1 Knowledge Deficit PT Goal 1 Goal The patient will be independent in a home exercise program. Target Visit 4 Progress Met PT Problem 2 PT Problem #2 Pain PT Goal 1 Goal The patient will report no greater than 3/10 low back pain with daily activities. Target Visit 12 Progress Partially Met Comment continue PT Problem 3 PT Problem #3 Impaired Functional Mobil PT Goal 1 Goal 1. The patient will demonstrate 30% or less self perceived disability per the LEFS. 2. The patient will ambulate 1,200 feet during the 6 minute walk test with 2/10 or less low back and R LE pain to return to recreational walking. Target Visit 12 Progress Not Met Comment continue PT Problem 4 PT Problem #4 Impaired Strength PT Goal 1 Goal The patient will improve upper and lower abdominal as well as lumbar extension strength to 4-/5 or greater to increase support to the lumbar spine for recreational activities. Target Visit 12 Progress Partially Met Comment continue
--- NOTE | 2024-05-06 12:14 | PTOPPROG ---
Assessment and note entered by Tg Burden, PT Evaluation Information Assessment Status Progress Diagnosis R hip pain, L3 radiculopathy ICD-10 Condition Codes (PT) M54.16,Pain in right hip M25.551 Onset 04/06/24 Subjective Information Whitley Sheridan reports she is feeling better overall. She does have more pain today in the right thigh though after being very busy yesterday and then having to sit in a folding chair during a meeting. She feels that PT has helped her get back to being able to walk longer and she is now able to shop. She is planning to make a follow up with her doctor because she is still getting pain in the thigh intermittently and she is wondering if she may benefit from a nerve medication. She will be going out of town for a week and reports she would like to follow up with PT when she returns. Assessment PT Clinical Summary Whitley Sheridan has completed 8 skilled PT visits for lumbar radiculopathy. She is reporting overall improvements in her symptoms since initiating PT noting that she can walk further and go shopping. She is still experiencing shooting pain in the right anterior thigh and is not able to walk for exercise or ride her bike yet. She objectively demonstrates improved core strength and improved tolerance for walking demonstrating the ability to walk 1,025 feet during the 6 minute walk test without rest breaks. She demonstrates regressed lumbar flexion and left lateral flexion AROM today and continues to demonstrate positive R SLR test and L cross SLR test. She will continue to benefit from skilled PT to further address these limitations. Plan of Care Interventions Electrical Stimulation,Hot Pack/Cold Pack,Patient/ Caregiver Educati,Therapeutic Exercise PT Services Indicated Yes Treatment Frequency and 2 times a week for 4 visits Duration These treatments will address the objective and functional deficits as defined above. The patient will be advanced safely and appropriately in order for the patient to progress towards his/her prior level of function. Additional exercises will be introduced and as well as a comprehensive home exercise program upon discharge, if needed, ?to ensure carryover of functional gains achieved in the clinic. This treatment plan has been reviewed and agreement upon by the patient.
--- NOTE | 2024-06-23 09:58 | PTOPDC ---
Assessment and note entered by Tg Burden, PT Evaluation Information Assessment Status Discharge - Pt Not Presen Diagnosis R hip pain, L3 radiculopathy ICD-10 Condition Codes (PT) M54.16,Pain in right hip M25.551 Onset 04/06/24 Subjective Information Refer to progress note from pt's last visit on 09/19. Assessment PT Clinical Summary Refer to progress note from patient's last visit on 05/06/24. Pt did not return to PT. She will be discharged. Plan of Care PT Services Indicated No
== END 2024-05-06 11:30 | disposition home or self-care (01) ==
LOC: CHSPT 10:44
PROVIDERS: PCP Internal Medicine; Visit Provider Internal Medicine
DX: M25.551 Pain in right hip (principal); M54.16 Radiculopathy, lumbar region
CPT/HCPCS: 97014; 97110; 97150; 97161; 97750; G0283

== ENCOUNTER 2024-04-22 14:20 | Outpatient (CLI) | payer MEDICARE, SELFPAY ==
--- NOTE | ~2024-04-22 | MR_ITS ---
EXAMINATION: MR lumbar spine wo con DATE: 04/22/2024 16:13 INDICATION: Back pain. TECHNIQUE: Magnetic resonance imaging (MRI) of the lumbar spine was performed without intravenous con trast. Sequences included sagittal T2-weighted FSE, sagittal T2-weighted FS FSE, sagittal T1-weighted FSE, and axial T2-weighted FSE. COMPARISON: Lumbar spine radiograph 03/29/2024 FINDINGS: There is 5 degrees dextrocurvature of thoracolumbar spine. Vertebral body heights are bertha l. There is moderately decreased disc height from T11-T12 through L1-L2, mildly decreased disc height at L2-L3, and severely decreased disc height from L3-L4 through L5-S1. The distal spinal cord signal intensity is normal. The conus medullaris is at T12-L1. The following disc levels are specifically d iscussed: L1-L2: The disc is bulging and has an annular fissure. There is severe bilateral facet joint osteoart hritis. There is mild bilateral neural foraminal stenosis. There is mild central canal stenosis. L2-L3: The disc is bulging and has an annular fissure. There is severe bilateral facet joint osteoart hritis. There is mild bilateral neural foraminal stenosis. There is mild central canal stenosis. L3-L4: The disc is bulging and has an annular fissure. There is severe bilateral facet joint osteoart hritis. There is mild bilateral neural foraminal stenosis. There is mild central canal stenosis. L4-L5: The disc is bulging and has an annular fissure. There is severe bilateral facet joint osteoart hritis. There is mild bilateral neural foraminal stenosis. There is mild central canal stenosis. L5-S1: The disc is bulging and has an annular fissure. There is severe bilateral facet joint osteoart hritis. There is mild bilateral neural foraminal stenosis. There is no central canal stenosis. IMPRESSION: 1. Severe lumbar spondylosis. Reviewed, dictated and finalized at location A.
== END 2024-04-22 14:21 | disposition home or self-care (01) ==
PROVIDERS: PCP Internal Medicine; Visit Provider Internal Medicine
DX: M43.06 Spondylolysis, lumbar region (principal)
CPT/HCPCS: 72148

== ENCOUNTER 2024-12-10 08:17 | Outpatient (CLI) | payer MEDICARE, SELFPAY ==
--- OUTSIDE RECORDS SUMMARY | 2024-12-10 08:22 | XMS_ITS | Patient Health Summary ---
Author Organization [facility] [employer] Address [address] [place] [address] Care Team Providers Care Auto Appraiser Name Role Phone Cris Mendoza MD Unavailable [phone] Elmer Marie MD Primary Care Provider [phone] Note from [facility],non-owned Affiliates and Associated Physician Practices is amultiple site organization consisting of ambulatory clinics and hospital sitesin [place], [place], [place] and [place]. This disclosure is being madepursuant to the Care Everywhere program and may not contain all information available regarding this patient. Last updated 18.[facility] Allergies No known active allergies Medications * Be aware that medications may not be up to date on this document. Alwaysverify current medications with the patient. * atorvastatin (LIPITOR) 10 MG tablet Take 10 mg by mouth at bedtime. * sertraline (ZOLOFT) 100 MG tablet Take 100 mg by mouth once daily. * aspirin 81 MG tablet Take 81 mg by mouth once daily. * Loratadine (CLARITIN) 10 MG CAPS Take by mouth. * [place]-3 Fatty Acids (FISH OIL) 1000 MG CPDR Take by mouth. * diclofenac sodium (VOLTAREN) 1 % gel(Started 12/27/2014) Apply 4 g to affected area 4 times daily. 2 refills left * diclofenac sodium EC (VOLTAREN) 75 MG tablet(Started 07/24/2015) 1 Tab 2 times daily 3 refills left Active Problems Problem Noted Date Diagnosed Date Other tear of medial meniscu s, current injury, right knee, initial encounter 03/08/2014 Social History Tobacco Use Types Packs/Day Years Used Date Smoking Tobacco: Former Cigarettes Q uit: 10/27/1993 Alcohol Use Standard Drinks/Week Comments Yes 0 (1 standard drink = 0.6 oz pur e alcohol) Sex and Gender Information Value Date Recorded Sex Assigned at Not on file Gender Identity Not on file Sexual Orientation Not on file Procedures * MRI KNEE RIGHT WO CONTRAST(Performed 03/19/2014) Performed for Medial meniscus tear, right, initial encounter, Knee pain Results * MRI KNEE WO CONT RIGHT (03/19/2014) Anatomical Region Laterality Modality Lower Extremity Other Cris Mendoza MD MR ORDERABLES Care Teams Auto Appraiser Relationship Specialty Start Date End Date Elmer Marie MD [address] [place] [address] PCP - General 01/21/22 [place] [id number] [facility] [address] [place] [id number] Orthopedic Surgery 03/08/14
--- OUTSIDE RECORDS SUMMARY | 2024-12-10 08:22 | XMS_ITS | Referral Summary ---
Author Organization [facility] [employer] Address [address] [place] [address] Care Team Providers Care Enterprise Security Architect Name Role Phone Cris Mendoza MD Unavailable [phone] Elmer Marie MD Primary Care Provider [phone] Source Comments [facility] [employer],non-owned Affiliates and Associated Physician Practices is amultiple site organization consisting of ambulatory clinics and hospital sitesin [place], [place], [place] and [place]. This disclosure is being madepursuant to the Care Everywhere program and may not contain all information available regarding this patient. Last updated 18.[facility] [employer] Allergies No known active allergies Medications * Be aware that medications may not be up to date on this document. Alwaysverify current medications with the patient. Medication Sig Dispensed Refills Start Date End Date Status atorvastatin (LIPITOR) 10 MG tablet Take 10 mg by mouth at bedtime. Active sertraline (ZOLOFT) 100 MG tablet Take 100 mg by mouth once daily. Active aspirin 81 MG tablet Take 81 mg by mouth once daily. Active Loratadine (CLARITIN) 10 MG CAPS Take by mouth. Active [place]-3 Fatty Acids (FISH OIL) 1000 MG CPDR Take by mouth. Active diclofenac sodium (VOLTAREN) 1 % gel Apply 4 g to affected area 4 times daily. 2 Tube 2 12/27/2014 Active diclofenac sodium EC (VOLTAREN) 75 MG tablet 1 Tab 2 times daily 60 Tab 3 07/24/2015 Active Active Problems Problem Noted Date Diagnosed Date Other tear of medial meniscu s, current injury, right knee, initial encounter 03/08/2014 Overview (07/27/2016): IMO Updt 07/27/2016 Social History Tobacco Use Types Packs/Day Years Used Date Smoking Tobacco: Former Cigarettes Q uit: 10/27/1993 Alcohol Use Standard Drinks/Week Comments Yes 0 (1 standard drink = 0.6 oz pur e alcohol) Sex and Gender Information Value Date Recorded Sex Assigned at Not on file Gender Identity Not on file Sexual Orientation Not on file Plan of Treatment Not on file Administered Medications Care Teams Enterprise Security Architect Relationship Specialty Start Date End Date Elmer Marie MD [address] [place] [address] PCP - General 01/21/22 [place] [id number] [address] Orthopedic Surgery 03/08/14
--- OUTSIDE RECORDS SUMMARY | 2024-12-10 08:22 | XMS_ITS | Clinical Summary ---
Author Organization [facility] Address [facility] [place] [address] Care Team Providers Care Bobbin Marker Name Role Phone Unavailable Primary Care Provider Unavailabl e Social History Tobacco Use Types Packs/Day Years Used Date Smoking Tobacco: Never Assessed Comments Unknown Sex and Gender Information Value Date Recorded Sex Assigned at Not on file Legal Sex Female 10:51 PM CDT Gender Identity Not on file Sexual Orientation Not on file Last Filed Vital Signs Vital Sign Reading Time Taken Comments Blood Pressure 122/74 06/21/2014 7:30 AM CDT Pulse 78 06/21/2014 7:30 AM CDT Temperature - - Respiratory Rate - - Oxygen Saturation - - Inhaled Oxygen Concentration - - Weight 88.9 kg (196 lb) 06/21/2014 7:30 AM CDT Height 167.6 cm (5' 6 ) 06/21/2014 7:30 AM CDT Body Mass Index 31.64 06/21/2014 7:30 AM CDT Plan of Treatment Health Maintenance Due Date Last Done Comments Colorectal Cancer Screening Colonoscopy (10 Years) 1952 Hepatitis C 1970 DTaP, Tdap and Td Vaccines ( 1 - Tdap) 1971 Mammogram Screening 1992 Zoster Vaccines (1 of 2) 2002 Dexa Scan (General) 2017 Pneumococcal Vaccine: 65+ Ye ars (1 of 1 - PCV) 2017 COVID-19 Vaccine ( - 2023-2 5 season) 2024 Influenza Adult (#1) 2024 RSV Immunization or 60+ Years (1 - 1-dose 75+ series) 2027 Meningococcal B Vaccine Aged Out No l onger eligible based on patient's age to complete this topic Meningococcal Vaccine Aged Out No sav brandee eligible based on patient's age to complete this topic RSV Immunizations Under 20 Months Aged Out No longer eligible based on patient's age to complete this topic
--- OUTSIDE RECORDS SUMMARY | 2024-12-10 08:22 | XMS_ITS | Clinical Summary ---
Author Organization [facility] [employer] Address [address] [place] [address] Care Team Providers Care Final Installer Inspector Name Role Phone Elmer Marie MD Primary Care Provider [phone] Allergies Active Allergy Reactions Criticality Noted Date Comments Spearmint Oil Swelling,Swollen tongue High [address] (VOLTAREN) 75 mg EC tablet 1 Active sertraline (ZOLOFT) 100 mg tablet 1 Active biotin 10,000 mcg capsule Take by mouth Acti ve balsalazide (COLAZAL) 750 mg capsuleIndicati ons:Ulcerative Colitis Take 3 capsules (2,250 mg total) by mouth 2 (two) times a day Active loratadine (CLARITIN ORAL) Claritin Acti ve rosuvastatin (CRESTOR) 20 mg tablet rosuvastatin 20 mg tablet Active Active Problems Problem Noted Date Diagnosed Date SALEH (dyspnea on exertion) 12/24/2021 Family history of coronary artery disease 2021 Mixed hyperlipidemia 12/24/2021 Encounters Date Type Department Care Team Description 12/07/2024 9:40 AM BOAT HAND - 12/07/2024 11:59 PM BOAT HAND Hospital Encounter [facility] [address] [place] [address] Screening mammogram, encounter for Discharge Disposition: Discharge to home or self care 10/04/2024 12:45 PM BOAT HAND Office Visit [facility] [address] [place] [address] Su Bennett MD Family history of coronary artery disease (Primary Dx); Mixed hyperlipidemia; SALEH (dyspnea on exertion) from Last 3 Months Surgical History Surgery Date Site/Laterality Comments HYSTERECTOMY 10/27/1985 - 10/26/1986 BREAST BIOPSY 10/27/1999 - 10/26/2000 Left benign needle bx COLONOSCOPY 05/26/2008 KNEE ARTHROSCOPY W/ MENISCAL REPAIR 10/27/2012 - 10/26/2013 Right ADENOIDECTOMY 1959 Medical History Medical History Date Comments Hyperlipidemia Anxiety and depression Arthritis Ulcerative colitis (HCC) Allergic rhinitis Dental disease 2022 Tinnitus 2022 Sinusitis 2022 HL (hearing loss) 2022 Ear problems 2022 Autoimmune disease (CMS/HCC) (HCC) 1997 Family History Medical History Relation Name Comments Kidney failure Father Father Snoring Father Father Heart disease Mother Mother Hyperlipidemia Mother Mother Breast cancer Neg Hx Relation Name Status Comments Father Father (Age 77) Mother Mother (Age 52) Social History Tobacco Use Types Packs/Day Years Used Date Smoking Tobacco: Former Cigarettes 0.5 20 0 12/24/1971 - 12/24/1991 Smokeless Tobacco: Never AUDIT-C Answer Date Recorded Q1: How often do you have a drink containing alc ohol? 2-4 times a month 12/24/2021 Q2: How many drinks containi ng alcohol do you have on a typical day when you are drinking? 1 or 2 12/24/2021 Q3: How often do you have si x or more drinks on one occasion? Never 12/24/2021 Comments Unknown Sex and Gender Information Value Date Recorded Sex Assigned at Not on file Legal Sex Female 1:19 PM BOAT HAND Gender Identity Not on file Sexual Orientation Not on file Obstetrics History Para Term AB IAB SAB Ectopic Multiple Livin g Live Births 3 1 1 Date Outcome GA Total Labor Labor/2nd/3rd Weight Sex Type Anes PTL Kindra A1 A5 Name Clin Term Last Filed Vital Signs Vital Sign Reading Time Taken Comments Blood Pressure 122/80 10/04/2024 12:22 PM BOAT HAND Pulse 77 10/04/2024 12:22 PM BOAT HAND Temperature - - Respiratory Rate - - Oxygen Saturation 97% 10/04/2024 12:22 PM BOAT HAND Inhaled Oxygen Concentration - - Weight 92 kg (202 lb 14.4 oz) 10/04/2024 12:22 P M BOAT HAND Height 167.6 cm (5' 6 ) 12/07/2024 9:46 AM BOAT HAND Body Mass Index 32.75 10/04/2024 12:22 PM BOAT HAND Plan of Treatment Health Maintenance Due Date Last Done Comments Colon Cancer Screening-Colonoscopy 1952 Depression Screening 1952 Fall Risk Assessment 1952 Hepatitis C Screening 1952 Osteoporosis Screening-Bone Density Scan 1952 Hepatitis B Screening 1970 Zoster Vaccine (2 of 3) 07/28/2013 06/02/2013 Well Visit 65+ 2017 Pneumococcal vaccine 65+ (2 of 2 - PPSV23 or PCV20) 08/24/2020 08/24/2019 Covid-19 Vaccine (4 - 2023-2 5 season) 2024 07/25/2021, 12/19/2020, 11/28/2020 Influenza Vaccine (#1) 2024 , 07/25/2020, 08/24/2019, Additional history exists DTaP/Tdap/Td Vaccine (2 - Td or Tdap) 07/11/2025 07/11/2015 Breast Cancer Screening-Mammogram 12/07/2025 025, 10/22/2023 Procedures Procedure Name Priority Date/Time Associated Diagnosis Comments SCREENING MAMMOGRAM BILATERAL W MATI Schedule Routine, Read Routine (OP Routine) 12/07/2024 9:54 AM BOAT HAND Screening mammogram, encounter for POCT LIPID PANEL Routine 10/04/2024 12:1 8 PM BOAT HAND Mixed hyperlipidemia from Last 3 Months Results * Screening Mammogram Bilateral W Mati (12/07/2024 9:54 AM BOAT HAND) Anatomical Region Laterality Modality Breast Bilateral Mammography Impressions 12/07/2024 4:26 PM BOAT HAND BI-RADS ATLAS category (overall): 1 - Negative There is no mammographic evidence of malignancy. A 1 year screening mammogram is recommended. The patient has been or will be contacted. We recommend annual screening mammography for women at average risk of breast cancer beginning at age 40, based on guidelines of the [employer] (ACR Practice Parameter for the Performance of Screening and Diagnostic Mammography) and [employer]. For women with and elevated risk of breast cancer, please refer to the ACR Practice Parameter for specific screening recommendations. The patient will be entered into a reminder system with a target due date of 1 year for her next screening exam. Narrative 12/07/2024 4:26 PM BOAT HAND Screening Mammogram Bilateral W Mati: 12/07/24 The study was acquired using full field digital technology and interpreted from soft copy. 2D digital mammographic views, as well as 3D digital tomosynthesis were performed in the CC and MLO projections. This study was resulted using Computer-Aided Detection (CAD). CLINICAL: Screening mammogram, encounter for. No relevant medical history has been documented for this patient. History of breast cancer in Neg Hx. COMPARISONS: 2022, 2021, and 2020. BREAST TISSUE: There are scattered areas of fibroglandular density. FINDINGS: No suspicious masses, suspicious calcifications, or other suspicious findings are seen within either breast. There has been no suspicious change. Self Screening Mammogram IMG MAMMO PROCEDURES Fi nal Result * POCT lipid panel (10/04/2024 12:18 PM BOAT HAND) Cholesterol, POC 238 mg/dL Comment:GLU = 97 HDL, POC 71 mg/dL Triglycerides, POC 352 mg/dL LDL Cholesterol POC 97 mg/dL Chol/HDL Ratio, POC 1.4 Non-HDL Cholesterol, POC 168 mg/dL Cholesterol Total, POC 238 mg/dL Capillary blood 10/04/2024 1 2:18 PM BOAT HAND Su Bennett MD POINT OF CARE TEST O RDERABLES Final Result from Last 3 Months Insurance [employer] [facility] [employer] [facility] [employer] [employer] Care Teams Final Installer Inspector Relationship Specialty Start Date End Date Elmer Marie MD PCP - General Internal Medicine 11/17/20
--- OUTSIDE RECORDS SUMMARY | 2024-12-10 08:22 | XMS_ITS | Referral Summary ---
Author Organization [facility] [employer] Address [address] [place] [address] Care Team Providers Care Freelance Web Designer Name Role Phone Elmer Marie MD Primary Care Provider [phone] Encounters Date Type Department Care Team Description 12/07/2024 9:40 AM WIRELESS CONSTRUCTION MANAGER - 12/07/2024 11:59 PM WIRELESS CONSTRUCTION MANAGER Hospital Encounter [facility] [address] [place] [address] Screening mammogram, encounter for Discharge Disposition: Discharge to home or self care 10/04/2024 12:45 PM WIRELESS CONSTRUCTION MANAGER Office Visit [facility] [address] [place] [phone] Su Bennett MD Family history of coronary artery disease (Primary Dx); Mixed hyperlipidemia; SALEH (dyspnea on exertion) from Last 3 Months Allergies Active Allergy Reactions Criticality Noted Date [...] coronary artery disease 2021 Mixed hyperlipidemia 12/24/2021 Social History Tobacco Use Types Packs/Day Years [...] on file Legal Sex Female 1:19 PM WIRELESS CONSTRUCTION MANAGER Gender Identity Not on file Sexual Orientation Not on file Last Filed Vital Signs Vital Sign Reading Time Taken Comments Blood Pressure 122/80 10/04/2024 12:22 PM WIRELESS CONSTRUCTION MANAGER Pulse 77 10/04/2024 12:22 PM WIRELESS CONSTRUCTION MANAGER Temperature - - Respiratory Rate - - Oxygen Saturation 97% 10/04/2024 12:22 PM WIRELESS CONSTRUCTION MANAGER Inhaled Oxygen Concentration - - Weight 92 kg (202 lb 14.4 oz) 10/04/2024 12:22 P M WIRELESS CONSTRUCTION MANAGER Height 167.6 cm (5' 6 ) 12/07/2024 9:46 AM WIRELESS CONSTRUCTION MANAGER Body Mass Index 32.75 10/04/2024 12:22 PM WIRELESS CONSTRUCTION MANAGER Plan of Treatment Not on file Procedures Procedure Name Priority Date/Time Associated Diagnosis Comments SCREENING MAMMOGRAM BILATERAL W MATI Schedule Routine, Read Routine (OP Routine) 12/07/2024 9:54 AM WIRELESS CONSTRUCTION MANAGER Screening mammogram, encounter for POCT LIPID PANEL Routine 10/04/2024 12:1 8 PM WIRELESS CONSTRUCTION MANAGER Mixed hyperlipidemia from Last 3 Months Results * Screening Mammogram Bilateral W Mati (12/07/2024 9:54 AM WIRELESS CONSTRUCTION MANAGER) Anatomical Region Laterality Modality Breast Bilateral Mammography Impressions 12/07/2024 4:26 PM WIRELESS CONSTRUCTION MANAGER BI-RADS ATLAS category (overall): 1 - Negative There is no mammographic evidence of malignancy. A 1 year screening mammogram is recommended. The patient has been or will be contacted. We recommend annual screening mammography for women at average risk of breast cancer beginning at age 40, based on guidelines of the [employer] (ACR Practice Parameter for the Performance of Screening and Diagnostic Mammography) and [employer]. For women with and elevated risk of breast cancer, please refer to the ACR Practice Parameter for specific screening recommendations. The patient will be entered into a reminder system with a target due date of 1 year for her next screening exam. Narrative 12/07/2024 4:26 PM WIRELESS CONSTRUCTION MANAGER Screening Mammogram Bilateral W Mati: 12/07/24 The [...] * POCT lipid panel (10/04/2024 12:18 PM WIRELESS CONSTRUCTION MANAGER) Cholesterol, POC 238 mg/dL Comment:GLU = 97 HDL, POC 71 mg/dL Triglycerides, POC 352 mg/dL LDL Cholesterol POC 97 mg/dL Chol/HDL Ratio, POC 1.4 Non-HDL Cholesterol, POC 168 mg/dL Cholesterol Total, POC 238 mg/dL Capillary blood 10/04/2024 1 2:18 PM WIRELESS CONSTRUCTION MANAGER Su Bennett MD POINT OF CARE TEST O RDERABLES Final Result from Last 3 Months Insurance [facility] Care Teams Freelance Web Designer Relationship Specialty Start Date End Date Elmer Marie MD PCP - General Internal Medicine 11/17/20
--- OUTSIDE RECORDS SUMMARY | 2024-12-10 08:22 | XMS_ITS | Clinical Summary ---
Author Organization [facility] [employer] Address [address] [place] [address] Care Team Providers Care Tumbler Operator Name Role Phone Cris Mendoza MD Unavailable [phone] Elmer Marie MD Primary Care Provider [phone] [facility] [employer],non-owned Affiliates and Associated Physician Practices is amultiple site organization consisting of ambulatory clinics and hospital sitesin [place], [place], [place] and [place]. This disclosure is being madepursuant to the Care Everywhere program and may not contain all information available regarding this patient. Last updated 18.[facility] [employer] Allergies No known active allergies Medications * [...] 10 MG CAPS Take by mouth. Active [place]-3 Fatty Acids (FISH OIL) 1000 MG CPDR [...] Orientation Not on file Plan of Treatment Health Maintenance Due Date Last Done Comments BONE DENSITY TESTING 1950 COLOGUARD (AGES 45-75) - COL ON CA SCREENING 1952 COLON MONITORING 1952 COLONOSCOPY - COLON CA SCREENING 1952 CT COLONOGRAPHY - COLON CA SCREENING 1950 Colorectal Cancer Screening 1952 FIT - COLON CA SCREENING 1952 FLEX SIG - COLON CA SCREENING 1950 MAMMOGRAM 1950 HEPATITIS C SCREENING 11/21/1970 DTAP/TDAP/TD VACCINES (1 - Tdap) 1971 PNEUMOCOCCAL VACCINE 50+ (1 of 1 - PCV) 2002 ZOSTER VACCINE (1 of 2) 2002 COVID-19 VACCINE (1 - 2023-2 5 season) 2024 INFLUENZA VACCINE (#1) 2024 DEPRESSION SCREENING 10/27/2024 Respiratory Syncytial Virus (RSV) Vaccine Pt: or over 60 yrs (1 - 1-dose 75+ series) 2027 HEPATITIS B VACCINE Aged Out No longe r eligible based on patient's age to complete this topic HIB VACCINE Aged Out No longer eligi ble based on patient's age to complete this topic HPV VACCINE Aged Out No longer eligi ble based on patient's age to complete this topic MENINGOCOCCAL (Group B) VACCINE Aged Out No longer eligible based on patient's age to complete this topic MENINGOCOCCAL VACCINE Aged Out No sav brandee eligible based on patient's age to complete this topic Care Teams Tumbler Operator Relationship Specialty Start Date End Date Elmer Marie MD [address] [place], [place] [id number] PCP - General 01/21/22 [place] [id number] [address] Orthopedic Surgery 03/08/14
[2024-12-10 08:35] LABS: Hematocrit 39.3 % (35.0-42.0); Hemoglobin 12.9 g/dL (11.7-13.8); Mean Corpuscular HGB Conc 32.8 g/dL (32-36); Mean Corpuscular Hemoglobin 28.5 pg (27.0-31.0); Mean Corpuscular Volume 86.9 fL (78.0-102.0); Mean Platelet Volume 8.7 fl (9.2-11.8); Platelet Count Result 198 K/mm3 (150-420); Red Blood Count 4.52 M/mm3 (4.20-5.40); Red Cell Distribution Width 13.1 % (11.6-14.4); White Blood Count 5.5 K/mm3 (4.8-10.8)
[2024-12-10 08:43] LABS: Add Urine Microscopic? NO; Appearance Urine Clear (Clear); Bilirubin Urine Negative (Negative); Blood Urine Negative (Negative); Color Urine Light Yellow (Yellow); Glucose Urine UA Negative (Negative); Ketones Urine Negative (Negative); Leukocyte Esterase Ur Negative LEU/UL (Negative); Nitrate Urine Negative (Negative); Protein Urine Negative (Negative); Specific Grav Ur 1.025 (1.010-1.020); Urobilinogen Urine 0.2 mg/dL (0.2-1.0); pH Urine 5.5 (5.0-8.0)
[2024-12-10 10:30] LABS: Erythrocyte Sedimentation Rate 18 mm/hr (0-20)
[2024-12-10 10:36] LABS: Alanine Aminotransferase 35 U/L (14-59); Albumin Level 4.3 g/dL (3.4-5.0); Alkaline Phosphatase 81 U/L (46-116); Anion Gap 12 mmol/L (4-12); Aspartate Amino Transferase 20 U/L (15-37); Bilirubin,Total 0.5 mg/dL (0.00-1.00); Blood Urea Nitrogen 15 mg/dL (7-18); Calcium 9.3 mg/dL (8.5-10.1); Carbon Dioxide 25 mmol/L (21-32); Chloride 108 mmol/L (98-108); Cholesterol 213 mg/dL (0-200); Estimated Glomerular Filt Rate 55; Glucose 106 mg/dL (70-99); HDL Direct 63 mg/dL (40-60); LDL Cholesterol Calculated 92 mg/dL (<130); Osmolality Calculated 300 mOsm/kg (285-295); Potassium 4.2 mmol/L (3.5-5.1); Sodium 145 mmol/L (136-145); Thyroid Stimulating Hormone 2.35 uIU/mL (0.36-3.74); Total Protein 7.1 g/dL (6.4-8.2); Triglycerides 290 mg/dL (0-150)
[2024-12-10 10:50] LABS: CRP < 0.5 mg/dL (0.0-0.9)
[2024-12-10 14:14] LABS: Hemoglobin A1C 5.7 % (<5.7)
== END 2024-12-10 08:18 | disposition home or self-care (01) ==
LOC: CHSLAB 08:19
PROVIDERS: PCP Internal Medicine; Visit Provider Nurse Practitioner
DX: K51.90 Ulcerative colitis, unspecified, without complications (principal); E78.2 Mixed hyperlipidemia; R94.6 Abnormal results of thyroid function studies; R73.02 Impaired glucose tolerance (oral)
CPT/HCPCS: 36415; 80053; 80061; 81003; 83036; 84443; 85027; 85652; 86140

== ENCOUNTER 2025-04-15 09:57 | Outpatient (RCR) | payer MEDICARE, SELFPAY ==
--- NOTE | 2025-04-15 10:40 | OPREHPOC ---
Outpatient Therapy Plan of Care This is a Multidisciplinary Plan of Care that may contain components documented by all disciplines (PT, OT, and ST.) PT Problem 1 PT Problem #1 Knowledge Deficit PT Goal 1 Goal / Goal Update independent and compliant with HEP Target Visit 6 PT Problem 2 PT Problem #2 Pain PT Goal 1 Goal / Goal Update patient to report no more than 2/10 pain in the R knee in the last week Target Visit 12 PT Problem 3 PT Problem #3 Impaired Range of Motion PT Goal 1 Goal / Goal Update 0-120 degrees active R knee rom Target Visit 12 PT Problem 4 PT Problem #4 Impaired Strength PT Goal 1 Goal / Goal Update 5/5 R knee strength 4+/5 R hip flex Target Visit 12 PT Problem 5 PT Problem #5 Impaired Functional Mobility PT Goal 1 Goal / Goal Update LEFS to display 30% or less functional deficits patient to ambulate with normal gait mechanics on level surfaces without AD patient to ambulate up and down steps with reciprocal mechanics
--- NOTE | 2025-04-15 10:40 | PTOPEVAL1 ---
Assessment and note entered by JT File, PT Evaluation Information Assessment Status Evaluation Onset 04/08/25 Subjective Information patient reports she had TKA on the R knee 1 week ago. she reports she feels she is doing well so far. she reports she is ready to get rid of the walker GALEN. she reports prior to surgery, she was not using any AD. she reports she would like to get back to cycling. Reported Pain Level Pain Score 3: Self Report Assessment PT Clinical Summary mrs. hernandez is a 74 yo woman who presents to skilled PT services for evaluation and treatment s /p R TKA. she presents today 1 week from surgery with reduced R knee rom, R knee strength, edema, and deficits from normal gait mechanics. continued skilled PT is indicated to improve her objective/ functional deficits and return to her prior level functional activity performance/quality of life. Plan of Care Interventions Electrical Stimulation,Gait Training,Hot Pack/Cold Pack,Intermittent Compression Pump,Neuro Re- education,Patient/Caregiver Education,Therapeutic Activities,Therapeutic Exercise PT Services Indicated Yes Treatment Frequency and 3x weekly for 12 visits Duration These treatments will address the objective and functional deficits as defined above. The patient will be advanced safely and appropriately in order for the patient to progress towards his/her prior level of function. Additional exercises will be introduced and as well as a comprehensive home exercise program upon discharge, if needed, ?to ensure carryover of functional gains achieved in the clinic. This treatment plan has been reviewed and agreement upon by the patient.
--- NOTE | 2025-05-09 09:22 | PTOPPROG ---
Assessment and note entered by Gary Butler Evaluation Information Assessment Status Evaluation Diagnosis R tka ICD-10 Condition Codes (PT) Aftercare following joint replacement surgery Z47. 1 Onset 04/08/25 Subjective Information Pt. reports she continues to improve. 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 She states that she wants to continue to focus on improving strength and mobility. Assessment PT Clinical Summary Pt. demonstrates excellent progress in regards to strength and mobility. Continue to note faulty gait mechanics and mild stiffness despite progress . continue with skilled PT per POC with focus on advancing standing strengthening and stabilization activities. Plan of Care Interventions Electrical Stimulation,Gait Training,Hot Pack/Cold Pack,Intermittent Compression Pump,Neuro Re- education,Patient/Caregiver Education,Therapeutic Activities,Therapeutic Exercise PT Services Indicated Yes Treatment Frequency and Continue 2x/week x 2 visits continuing focus on Duration strength and improving gait mechanics. These treatments will address the objective and functional deficits as defined above. The patient will be advanced safely and appropriately in order for the patient to progress towards his/her prior level of function. Additional exercises will be introduced and as well as a comprehensive home exercise program upon discharge, if needed, ?to ensure carryover of functional gains achieved in the clinic. This treatment plan has been reviewed and agreement upon by the patient.
--- NOTE | 2025-05-13 13:52 | OPREHPOC ---
Outpatient Therapy Plan of Care This is a Multidisciplinary Plan of Care that may contain components documented by all disciplines (PT, OT, and ST.) PT Problem 1 PT Problem #1 Knowledge Deficit PT Goal 1 Goal / Goal Update independent and compliant with HEP Target Visit 6 Progress Met PT Problem 2 PT Problem #2 Pain PT Goal 1 Goal / Goal Update patient to report no more than 2/10 pain in the R knee in the last week Target Visit 12 Progress Met PT Problem 3 PT Problem #3 Impaired Range of Motion PT Goal 1 Goal / Goal Update 0-120 degrees active R knee rom Target Visit 12 Progress Partially Met PT Problem 4 PT Problem #4 Impaired Strength PT Goal 1 Goal / Goal Update 5/5 R knee strength 4+/5 R hip flex Target Visit 12 Progress Partially Met PT Problem 5 PT Problem #5 Impaired Functional Mobility PT Goal 1 Goal / Goal Update LEFS to display 30% or less functional deficits patient to ambulate with normal gait mechanics on level surfaces without AD patient to ambulate up and down steps with reciprocal mechanics Progress Partially Met
--- NOTE | 2025-05-13 13:52 | PTOPDC ---
Assessment and note entered by JT File, PT Evaluation Information Assessment Status Discharge Diagnosis R tka ICD-10 Condition Codes (PT) Aftercare following joint replacement surgery Z47. 1 Onset 04/08/25 Subjective Information patient reports she feels she is doing well, but reports her progress has slowed. she reports she thought her progress would continue as rapidly. she reports she only has pain in the R knee with trying to bend it while standing, and while going down steps with the R LE trailing her. she reports she has not tried to return to biking or golf. Reported Pain Level Pain Score 2: Self Report Assessment PT Clinical Summary mrs. hernandez presents to skilled PT today for her 12th skilled therapy visit following R TKA. she presents today ambulating with normal gait mechanics without an AD, full rom of the R knee, significant improvement on the tinetti. she will DC skilled PT today, and continue with exercises at home and in the gym to continue to progress towards the return to golf and other prior level functional activities Plan of Care PT Services Indicated Yes
== END 2025-05-13 14:30 | disposition home or self-care (01) ==
LOC: CHSPT 09:57
PROVIDERS: Visit Provider Orthopaedic Surgery
DX: Z96.651 Presence of right artificial knee joint (principal); Z47.1 Aftercare following joint replacement surgery
CPT/HCPCS: 97016; 97110; 97112; 97150; 97161; 97530

== ENCOUNTER 2025-09-14 16:48 | Outpatient (RCR) | payer MEDICARE, SELFPAY ==
--- NOTE | 2025-09-14 17:37 | OPREHPOC ---
Outpatient Therapy Plan of Care This is a Multidisciplinary Plan of Care that may contain components documented by all disciplines (PT, OT, and ST.) PT Problem 1 PT Problem #1 Knowledge Deficit PT Goal 1 Goal / Goal Update independent and compliant with HEP Target Visit 6 PT Problem 2 PT Problem #2 Pain PT Goal 1 Goal / Goal Update no more than 2/10 pain in the L knee with closed chain activities and ambulation Target Visit 12 PT Problem 3 PT Problem #3 Impaired Range of Motion PT Goal 1 Goal / Goal Update 0-120 degrees active L knee rom Target Visit 12 PT Problem 4 PT Problem #4 Impaired Strength PT Goal 1 Goal / Goal Update 4+/5 or better L hip flex 5/5 L knee strength Target Visit 12 PT Problem 5 PT Problem #5 Impaired Functional Mobility PT Goal 1 Goal / Goal Update patient to ambulate on level surfaces without AD with normal gait mechanics patient to ambulate up and down steps with reciprocal mechanics and 1 hand rail hold patient to display 25% or less functional deficits on the LEFS Target Visit 12
--- NOTE | 2025-09-14 17:37 | PTOPEVAL1 ---
Assessment and note entered by JT File, PT Evaluation Information Assessment Status Evaluation Diagnosis s/p L TKA ICD-10 Condition Codes (PT) Aftercare following joint replacement surgery Z47. 1 Onset 09/07/25 Subjective Information patient presents to skilled PT today 7 days post op L TKA. she reports the knee feels great so far. she reports she has been doing her ankle pumps, heel slides, heel prop, and walking at home . she also has been icing and elevating as needed. Reported Pain Level Pain Score 0: Self Report Assessment PT Clinical Summary mrs. hernandez is a pleasant 74 yo woman who presents to skilled PT services for evaluation and treatment following L TKA. she presents today with deficits in L knee rom, L knee strength, ambulation mechanics, and has swelling in the L knee. continued skilled PT is indicated to improve her objective/functional deficits and progress towards a return to her prior level functional activity performance/quality of life. Plan of Care Interventions Electrical Stimulation,Gait Training,Hot Pack/Cold Pack,Intermittent Compression Pump,Manual Therapy ,Neuro Re-education,Patient/Caregiver Education, Therapeutic Activities,Therapeutic Exercise PT Services Indicated Yes Treatment Frequency and 3x weekly for 12 visits Duration These treatments will address the objective and functional deficits as defined above. The patient will be advanced safely and appropriately in order for the patient to progress towards his/her prior level of function. Additional exercises will be introduced and as well as a comprehensive home exercise program upon discharge, if needed, ?to ensure carryover of functional gains achieved in the clinic. This treatment plan has been reviewed and agreement upon by the patient.
--- NOTE | 2025-10-10 09:43 | OPREHPOC ---
Outpatient Therapy Plan of Care This is a Multidisciplinary Plan of Care that may contain components documented by all disciplines (PT, OT, and ST.) PT Problem 1 PT Problem #1 Knowledge Deficit PT Goal 1 Goal / Goal Update independent and compliant with HEP Target Visit 6 Progress Met PT Problem 2 PT Problem #2 Pain PT Goal 1 Goal / Goal Update no more than 2/10 pain in the L knee with closed chain activities and ambulation Target Visit 12 Progress Met PT Problem 3 PT Problem #3 Impaired Range of Motion PT Goal 1 Goal / Goal Update 0-120 degrees active L knee rom Target Visit 12 Progress Met PT Problem 4 PT Problem #4 Impaired Strength PT Goal 1 Goal / Goal Update 4+/5 or better L hip flex -met 5/5 L knee strength -met Target Visit 12 Progress Met PT Problem 5 PT Problem #5 Impaired Functional Mobility PT Goal 1 Goal / Goal Update patient to ambulate on level surfaces without AD with normal gait mechanics -met patient to ambulate up and down steps with reciprocal mechanics and 1 hand rail hold -met patient to display 25% or less functional deficits on the LEFS -not met but good progress from initial eval Target Visit 12 Progress Partially Met
--- NOTE | 2025-10-10 09:43 | PTOPDC ---
Assessment and note entered by Teodora Zepeda, PT Evaluation Information Assessment Status Discharge Diagnosis s/p L TKA ICD-10 Condition Codes (PT) Aftercare following joint replacement surgery Z47. 1 Onset 09/07/25 Subjective Information Angela reports her knee feels great overall. She denies pain and only reports stiffness but it subsides with activity. She denies difficulty with her daily activities such as walking and stair climbing. She also plans to get back to the gym this week and would like to discuss any precautions she should take and what activities would be best to resume at this time. She states she does not follow up with her doctor until October. Reported Pain Level Pain Score 0: Self Report Assessment PT Clinical Summary Mrs. Ramos has attended 10 skilled PT visits s/p L TKA on 09/07/25. She has made excellent progress in PT and has met therapeutic goals addressing L knee AROM, hip and knee strength, gait and stair climbing. She will be discharged this date due to meeting or partially meeting all therapeutic goals with edu to continue HEP and plans to return to recreational exercise at the gym. Plan of Care PT Services Indicated Yes
== END 2025-10-10 20:00 | disposition home or self-care (01) ==
LOC: CHSPT 16:48
PROVIDERS: Visit Provider Orthopaedic Surgery
DX: Z47.1 Aftercare following joint replacement surgery (principal); Z96.652 Presence of left artificial knee joint
CPT/HCPCS: 97016; 97110; 97112; 97161; 97530